=== PATIENT | female | born 1960 | race Caucasian/White ===

== ENCOUNTER → 2019-03-22 | Outpatient (CLI) | payer OTHER | LOC: M.CT 13:15 | DX: Z13.6 Encounter for screening for cardiovascular disorders (principal) ==

== ENCOUNTER → 2019-03-22 | Outpatient (CLI) | payer OTHER ==
--- NOTE | 2019-03-23 06:27 | TST ---
[place] [address] [employer] STRESS TEST Name: MATT VÁZQUEZ Room: [facility]#: [id number] Admission: 03/22/19 Attend Phys: Zaki Richardson, Discharge: Date of : 64 Date of Service: 03/22/19 1547 Report #: [id number] THIS REPORT FOR: //name// CC: Zaki Richardson MD DATE OF SERVICE: 03/22/2019 INDICATION: Dyspnea. CARDIAC RISK FACTORS: Age greater than 55 and family history of coronary artery disease. CARDIAC MEDICATIONS: None. TECHNIQUE: The patient exercised per standard Alvin protocol for a total of 6 minutes and 6 seconds to 95% of the age predicted maximum heart rate and achieved an energy expenditure equivalent of 7.18 METs. FINDINGS: The baseline heart rate was 79 beats per minute with a resting blood pressure of 116/94 mmHg. At peak exercise, the heart rate was 156 beats per minute with a peak stress blood pressure of 154/79 mmHg. The recovery heart rate was 93 beats per minute with a recovery blood pressure of 141/88 mmHg. The baseline 12-lead EKG shows sinus rhythm without significant ST or T-wave abnormality. EKGs obtained during and post exercise showed sinus rhythm and sinus tachycardia with no significant ST or T-wave changes when compared to baseline. There were no stress-induced arrhythmias. The patient achieved target heart rate. Exercise was discontinued due to achievement of target heart rate and dyspnea as well as fatigue. IMPRESSION: 1. Clinical response, nonischemic. 2. EKG response, nonischemic. CONCLUSION: This standard Alvin protocol exercise stress test shows no EKG or clinical evidence to suggest stress-induced ischemia. This is a low-risk study. <ELECTRONICALLY SIGNED> By: Corbin Frias MD, FACC 03/23/19 0627 [id number] Corbin Frias MD, FACC /nt
== END ==
LOC: M.CRD 03-13 08:12
DX: R06.00 Dyspnea, unspecified (principal); R79.82 Elevated C-reactive protein (CRP)